=== PATIENT | male | born 1960 | race Caucasian/White ===

== ENCOUNTER 2016-07-06 08:08 | Day surgery (SDC) | payer MEDICARE, BC ==
--- NOTE | ~2016-07-06 | OP ---
Record Of Operation [facility] [address] [place]. [address] NAME: MOON RAND : 62 STATUS : [facility]#: [id number] AGE: 56 ADM/REG DATE : 07/06/16 MR#: [id number] REPORT SERV DATE: 07/09/16 DICTATED BY: TOY AVILA DATE: 07/09/16 REPORT STATUS : Draft TRANSCRIBED BY: MODL DATE: 07/09/16 DATE OF PROCEDURE: 07/06/2016 PREOPERATIVE DIAGNOSES: 1. Left submandibular sialolithiasis. 2. Left submandibular chronic sialoadenitis. POSTOPERATIVE DIAGNOSES: 1. Left submandibular sialolithiasis. 2. Left submandibular chronic sialoadenitis. PROCEDURE: 1. Left submandibular gland excision. 2. Left submandibular sialodocholithotomy with stone removal. SURGEON: Toy Avila M.D. ANESTHESIA: General. COMPLICATIONS: None. COUNTS: All counts correct following the procedure. ESTIMATED BLOOD LOSS: 10 mL. PREOPERATIVE INFORMED CONSENT: We discussed at length the risks and benefits of surgery including, but not limited to bleeding, infection, possible cranial nerve injury resulting in temporary or permanent deficits, specifically the enlarged manidular nerve, hypoglossal nerves, and possible postoperative submandibular duct fistula. He understands the risks and benefits of surgery and consent is on the chart. PROCEDURE IN DETAIL: The patient was brought to the operating suite and placed on the operating table in supine position. General endotracheal anesthesia was initiated without incident. The left neck was cleaned and prepped in the usual sterile fashion. Following this, a curvilinear incision was marked out on 2 fingerbreadths below the margin of the mandible on the left hand side. Electrocautery was used to perform the incision, dissection was carried out down through the platysmal layer, a short platysmal flap was raised of the inferior aspect of the submandibular gland using careful dissection technique with a Harmonic scalpel dividing the feeding vessels using Harmonic scalpel and bipolar cautery. There was noted to be extensive fibrosis and severe scarring around the submandibular gland from previous infection and inflammation making dissection extremely difficult. The submandibular gland was dissected out from the mylohyoid muscle anteriorly and inferiorly from the digastric muscle taking care to avoid the hypoglossal nerve as well as a marginal mandibular nerve dissection was carried down on the capsule of the submandibular gland. The terminal branches of the facial artery were dissected off and divided using a Harmonic scalpel. The mylohyoid muscles were retracted anteriorly exposing the floor of the Record Of Operation [place] [id number] [facility] [place]. [address]. [id number] NAME: MOON RAND : 62 STATUS : [facility] PAT#: [id number] AGE: 56 ADM/REG DATE : 07/06/16 MR#: [id number] REPORT SERV DATE: 07/09/16 DICTATED BY: TOY AVILA DATE: 07/09/16 REPORT STATUS : Draft TRANSCRIBED BY: MODL DATE: 07/09/16 submandibular triangle. Again, there was noted be extensive fibrosis around the submandibular duct and the submandibular gland itself even making lingual nerve identification difficulty. The sublingual ganglion was carefully dissected out and divided using the Harmonic scalpel. The duct was severely dilated from the stone in the duct, the duct was carefully dissected from the surrounding tissue using a nerve dissector and then doubly clamped with hemostats, the duct was divided using a 15 blade scalpel, and the stone was then removed from the duct. The submandibular gland and stone were sent for permanent section. The proximal end of the duct was oversewn using 2-0 silk suture. The wound was copiously irrigated with sterile saline, and that wound was closed in layers using 3-0 Vicryl and 4-0 Prolene subcuticular closure followed by Mastisol, Steri-Strips, Tegaderm, and Telfa dressing. The patient was awakened from anesthesia and taken to the recovering room in stable condition. [employer]/NASH Toy Avila M.D. / [id number] CC: Hilary Huffman D.O. Christopher Poole, M.D.
[~2016-07-06 08:08] MED LIST: COREG3 PO; COZAAR100 MG PO; CRESTOR40 MG PO; CYMBALTA30 PO; HUMALOG SC; L80 PO; LANTUS SC; LIPITOR80 MG PO; LOTE40 PO; NEUR300 PO; NORV5 PO; RENA-VITE PO; TUMSROLL PO
[2016-07-06 08:46] LABS: HEMATOCRIT 33.5 % (40.0-51.0); HEMOGLOBIN 11.5 g/dL (13.6-17.8)
[2016-07-06 08:58] LABS: BUN (BLOOD UREA NITROGEN) 27 MG/DL (6-23); CALCIUM, SERUM 9.5 MG/DL (8.5-10.4); CHLORIDE, SERUM 94 MMOL/L (96-112); CO2 (CARBON DIOXIDE) 28 MMOL/L (24-34); CREATININE 6.83 MG/DL (0.70-1.30); GFR AFRICAN AMERICAN 10 ML/MIN (>=60); GFR NON AFRICAN AMERICAN 8 ML/MIN (>=60); GLUCOSE, SERUM 174 MG/DL (60-99); POTASSIUM, SERUM 3.7 MMOL/L (3.5-5.3); SODIUM, SERUM 134 MMOL/L (135-148)
[2016-10-18] MEDS ORDERED: LIPITOR20 PO (15:37)
[2016-10-18] MEDS ORDERED: NOVOLOG SC ×2 (15:41→15:42)
[2016-10-18] MEDS ORDERED: NEPHRO PO (15:43)
[2016-12-12] MEDS ORDERED: CRESTOR40 MG PO (20:55)
[2016-12-12] MEDS ORDERED: LOTE40 PO (21:04)
[2016-12-12] MEDS ORDERED: [UNRECOGNIZED DRUG - OTHER] PO (21:05)
[2016-12-12] MEDS ORDERED: COREG3 PO (21:05)
[2016-12-12] MEDS ORDERED: COZAAR100 MG PO (21:05)
[2016-12-12] MEDS ORDERED: NEUR300 PO (21:06)
[2016-12-12] MEDS ORDERED: L80 PO (21:06)
[2016-12-12] MEDS ORDERED: NORV5 PO (21:07)
[2016-12-12] MEDS ORDERED: CLARIT10 PO (21:07)
[2016-12-12] MEDS ORDERED: HUMULIN R1 ML SC (21:07)
[2016-12-12] MEDS ORDERED: TUMSROLL PO (21:08)
[2016-12-12] MEDS ORDERED: ALBUTEROL0.083 % INH (21:09)
[2016-12-24] MEDS ORDERED: FOLIC PO (14:11)
[2016-12-24] MEDS ORDERED: KEPPRA500 PO (14:16)
[2016-12-24] MEDS ORDERED: KEPPRA1000 MG PO (14:18)
[2016-12-24] MEDS ORDERED: MIRALAX POWDER1 PKT PO (14:24)
[2016-12-24] MEDS ORDERED: PCET PO (14:27)
== END 2016-07-06 23:59 | disposition home or self-care (01) ==
LOC: MSC 08:08
PROVIDERS: Otolaryngology
PROC: 0CCH0ZZ Extirpation of Matter from Left Submaxillary Gland, Open Approach (ICD-10-PCS; 2016-07-06)
PROC: 0CTH0ZZ Resection of Left Submaxillary Gland, Open Approach (ICD-10-PCS; principal; 2016-07-06 09:15)
DX: K11.5 Sialolithiasis (principal); K11.23 Chronic sialoadenitis; I25.10 Atherosclerotic heart disease of native coronary artery without angina pectoris; I12.0 Hypertensive chronic kidney disease with stage 5 chronic kidney disease or end stage renal disease; N18.6 End stage renal disease; E11.22 Type 2 diabetes mellitus with diabetic chronic kidney disease; E11.40 Type 2 diabetes mellitus with diabetic neuropathy, unspecified; E78.00 Pure hypercholesterolemia, unspecified; G47.33 Obstructive sleep apnea (adult) (pediatric); H54.42 Blindness, left eye, normal vision right eye; F17.290 Nicotine dependence, other tobacco product, uncomplicated; F12.90 Cannabis use, unspecified, uncomplicated; Z99.2 Dependence on renal dialysis; Z90.49 Acquired absence of other specified parts of digestive tract; Z83.3 Family history of diabetes mellitus; Z80.9 Family history of malignant neoplasm, unspecified; Z99.89 Dependence on other enabling machines and devices; Z88.5 Allergy status to narcotic agent; Z79.4 Long term (current) use of insulin; Z79.899 Other long term (current) drug therapy; Z98.890 Other specified postprocedural states
CPT/HCPCS: 80048; 82962; 85014; 85018; 88307; 93005; A9270-GY; J0330; J0690; J2250; J2405; J3010

== ENCOUNTER 2016-08-12 23:50 | Observation (INO) | payer MEDICARE, BC ==
--- NOTE | ~2016-08-12 | HP ---
History And Physical [place] [address] [place]. [address] NAME: MOON RIBEIRO : 62 STATUS : ADM Abby PAT#: [id number] AGE: 56 ADM/REG DATE : 08/12/16 MR#: [id number] REPORT SERV DATE: 08/13/16 DICTATED BY: DATE: REPORT STATUS : Draft TRANSCRIBED BY: MODL DATE: 08/13/16 DATE OF ADMISSION: 08/12/2016 CHIEF COMPLAINT: Shortness of breath. HISTORY OF PRESENT ILLNESS: Mr. Ribeiro is a 56-year-old white male with end-stage renal disease; dialyzes Saturday, Saturday, and Saturday at [facility]. He presented to the hospital with shortness of breath which started, he states, on Saturday. He went to the hospital at [facility]. He was given some breathing treatments with improvement and then last night, when he awoke at 10 p.m., shortness breath got much worse. Therefore, re- presented to the emergency department with this shortness of breath. In regard to his weight gains, he states according to the scales here, he is only at 4 kilos above his dry weight. States at times, he gains up to 6 kilos and does not get this short of breath. Denies any cough, congestion, fevers, or chills. Chest x-ray just shows a left pleural effusion. He was not significantly hypoxic. He had O2 of 90% on room air. White blood cell count is unremarkable. States that his blood pressure is always high. This is no change from his usual. Denies missing any medicines. No chest pain, tightness, or pressure. PAST MEDICAL HISTORY: End-stage renal disease, obesity, hypertension, diabetes, obstructive sleep apnea. He has had cholecystectomy and an AV fistula placement. SOCIAL HISTORY: He lives by himself. Has a very distant history of tobacco use, quit 33 years ago. No alcohol or illicit drug use. FAMILY MEDICAL HISTORY: Negative for end-stage renal disease. ALLERGIES: CODEINE AND HYDROCODONE. REVIEW OF SYSTEMS: 12-point review of systems obtained and negative with the exception of that in the HPI. HOME MEDICATIONS: Amlodipine, renal multivitamin, benazepril, calcium carbonate, carvedilol, Lasix, Neurontin, loratadine, losartan, and Crestor. PHYSICAL EXAMINATION: VITAL SIGNS: Temp 98.6, blood pressure 160/80, pulse of 62, respiratory rate 16, O2 saturation is 96% on 2 L. GENERAL: This is a pleasant, cooperative, white male. He is awake, alert, and oriented x3. In no acute distress. Answers questions appropriately. HEENT: Normocephalic and atraumatic. Conjunctivae clear. Sclerae anicteric. Pupils are equal and round. Oral mucosa is moist. NECK: I did not see any neck vein distention. No lymphadenopathy. LUNGS: Respirations are even and unlabored. He does have decreased left base. HEART: Rate is regular. I did not hear any murmur, rub, or gallop. ABDOMEN: Obese soft, nontender. Bowel sounds active. No masses. No hepatosplenomegaly. History And Physical [address] [address] NAME: MOON RIBEIRO : 62 STATUS : ADM Abby PAT#: [id number] AGE: 56 ADM/REG DATE : 08/12/16 MR#: [id number] REPORT SERV DATE: 08/13/16 DICTATED BY: DATE: REPORT STATUS : Draft TRANSCRIBED BY: MODL DATE: 08/13/16 No bruits. No CVA tenderness. BACK: Within normal limits. EXTREMITIES: Without any significant edema. SKIN: Warm, dry, and intact. No unusual rashes or skin lesions. NEURO: Nonfocal. Sits up in bed. Moves all extremities without any deficits. Mood and affect, pleasant and appropriate. PERTINENT LABS AND X-RAYS: Chest x-ray by my read, he has a left pleural effusion. No consolidation. BNP of 494. WBC 7.6, H and H 11/33, platelets 186,000. Sodium 132, potassium 4.6, chloride 92, CO2 of 25, BUN 50, creatinine of 7.9, calcium 9.1. Troponin 0.02. IMPRESSION: 1. Shortness of breath. 2. Left pleural effusion. 3. End-stage renal disease. 4. Hypertension. 5. Diabetes. 6. Obstructive sleep apnea. PLAN: Dialysis today. We will challenge dry weight and if he is stable off oxygen and breathing is improved, possible discharge after dialysis. Usual medicines ordered as appropriate. Further orders and recommendations pending clinical course. BRUCE/MODL GOLDEN Roque / [id number] CC: Hilary Collazo D.O.
[2016-08-13 00:05] LABS: BASOPHILS 0.8 %; BASOPHILS ABSOLUTE 0.06 10/3/uL (0.0-0.16); EOSINOPHILS 1.4 %; EOSINOPHILS ABSOLUTE 0.11 10/3/uL (0.0-0.53); HEMATOCRIT 33.2 % (40.0-51.0); HEMOGLOBIN 11.9 g/dL (13.6-17.8); IMMATURE GRANULOCYTES 0.1 %; IMMATURE GRANULOCYTES ABSOLUTE 0.01 10/3/uL (0.0-0.11); LYMPHOCYTES ABSOLUTE 1.06 10/3/uL (0.67-4.30); MANUAL DIFF NO %; MEAN CORPUS HGB CONC 35.8 g/dL (32.0-36.0); MEAN CORPUSCULAR HEMOGLOB 32.8 pg (26.0-34.0); MEAN CORPUSCULAR VOLUME 91.5 fL (80-100); MEAN PLATELET VOLUME 10.2 fL (9.2-13.0); MONOCYTES 6.2 %; MONOCYTES ABSOLUTE 0.47 10/3/uL (0.21-1.20); NEUTROPHILS 77.5 %; NEUTROPHILS ABSOLUTE 5.88 10/3/uL (2.02-8.40); PLATELET COUNT 186 10/3/uL (150-400); RBC DISTRIBUTION WIDTH 14.3 % (12.0-16.0); RED CELL COUNT 3.63 10/6/uL (4.7-6.1); WHITE BLOOD CELLS 7.6 10/3/uL (4.5-10.5)
[2016-08-13 00:12] LABS: INTERNATIONAL NORMAL RATI 1.1 UNITS (-); PARTIAL THROMBO TIME 31.7 SEC (22.5-37.2); PROTIME (NOT ORD) 14.4 SEC (12.0-14.5)
[2016-08-13 00:28] LABS: CALCIUM, SERUM 9.1 MG/DL (8.5-10.4); CHEST PAIN PROFILE TAT 0 Hrs 27 Mins; CHLORIDE, SERUM 92 MMOL/L (96-112); CO2 (CARBON DIOXIDE) 25 MMOL/L (24-34); SODIUM, SERUM 132 MMOL/L (135-148); TROPONIN I <0.02 NG/ML (<0.05)
[2016-08-13 00:30] LABS: BUN (BLOOD UREA NITROGEN) 50 MG/DL (6-23); CREATININE 7.94 MG/DL (0.70-1.30); GFR AFRICAN AMERICAN 8 ML/MIN (>=60); GFR NON AFRICAN AMERICAN 7 ML/MIN (>=60); GLUCOSE, SERUM 220 MG/DL (60-99); POTASSIUM, SERUM 4.6 MMOL/L (3.5-5.3)
[2016-08-13] MEDS ORDERED: LOTE40 PO (01:09)
[2016-08-13] MEDS ORDERED: CRESTOR40 MG PO (01:10)
[2016-08-13] MEDS ORDERED: COREG3 PO (01:10)
[2016-08-13] MEDS ORDERED: NEUR300 PO (01:11)
[2016-08-13] MEDS ORDERED: COZAAR100 MG PO (01:11)
[2016-08-13] MEDS ORDERED: RENA-VITE PO (01:11)
[2016-08-13] MEDS ORDERED: NORV5 PO (01:12)
[2016-08-13] MEDS ORDERED: CLARIT10 PO (01:13)
[2016-08-13] MEDS ORDERED: L80 PO (01:14)
[2016-08-13] MEDS ORDERED: NEUR600 PO (01:22)
[2016-08-13] MEDS ORDERED: TUMSROLL PO (01:40)
[2016-10-18] MEDS ORDERED: LIPITOR20 PO (15:37)
[2016-10-18] MEDS ORDERED: NOVOLOG SC ×2 (15:41→15:42)
[2016-10-18] MEDS ORDERED: NEPHRO PO (15:43)
[2016-12-12] MEDS ORDERED: CRESTOR40 MG PO (20:55)
[2016-12-12] MEDS ORDERED: LOTE40 PO (21:04)
[2016-12-12] MEDS ORDERED: COREG3 PO (21:05)
[2016-12-12] MEDS ORDERED: [UNRECOGNIZED DRUG - OTHER] PO (21:05)
[2016-12-12] MEDS ORDERED: COZAAR100 MG PO (21:05)
[2016-12-12] MEDS ORDERED: L80 PO (21:06)
[2016-12-12] MEDS ORDERED: NEUR300 PO (21:06)
[2016-12-12] MEDS ORDERED: HUMULIN R1 ML SC (21:07)
[2016-12-12] MEDS ORDERED: NORV5 PO (21:07)
[2016-12-12] MEDS ORDERED: CLARIT10 PO (21:07)
[2016-12-12] MEDS ORDERED: TUMSROLL PO (21:08)
[2016-12-12] MEDS ORDERED: ALBUTEROL0.083 % INH (21:09)
[2016-12-24] MEDS ORDERED: FOLIC PO (14:11)
[2016-12-24] MEDS ORDERED: KEPPRA500 PO (14:16)
[2016-12-24] MEDS ORDERED: KEPPRA1000 MG PO (14:18)
[2016-12-24] MEDS ORDERED: MIRALAX POWDER1 PKT PO (14:24)
[2016-12-24] MEDS ORDERED: PCET PO (14:27)
== END 2016-08-14 15:13 | disposition home or self-care (01) ==
LOC: ER 23:50 → 2SO 23:59
PROVIDERS: Specialist
DX: I12.0 Hypertensive chronic kidney disease with stage 5 chronic kidney disease or end stage renal disease (principal); N18.6 End stage renal disease; J90 Pleural effusion, not elsewhere classified; E11.22 Type 2 diabetes mellitus with diabetic chronic kidney disease; G47.33 Obstructive sleep apnea (adult) (pediatric); Z90.49 Acquired absence of other specified parts of digestive tract; Z98.890 Other specified postprocedural states; Z87.891 Personal history of nicotine dependence; Z88.5 Allergy status to narcotic agent; Z79.899 Other long term (current) drug therapy; Z99.2 Dependence on renal dialysis
CPT/HCPCS: 71020; 80048; 80053; 82962; 83735; 83880; 84484; 85025; 85610; 85730; 87040; 93005; 96374; 96375; 96376; 99285; A9270-GY; G0257; G0378; J0360; J2405